=== PATIENT | male | born 1945 | race Caucasian/White ===

== ENCOUNTER → 2017-03-16 | Outpatient (CLI) | payer MEDICARE, BC ==
[~2017-03-16] MED LIST: SEPTRA PO
--- NOTE | ~2017-03-16 | CR106 ---
[facility] A Service of [facility] RADIOLOGY TEXT RESULTS PATIENT: CLAIRE ECHEVARRIA LOCATION: [facility] : 43 UNIT #: [id number] AGE: [address]: Willow Lacey MD SEX: M ORDER DR: [id number] [facility] [address] [place], [place] [address] [id number] O MR#: [id number] Acc #: [id number] NAME: CLAIRE ECHEVARRIA : 1945 SEX: M STUDY DATE/TIME: 03/16/2017 12:37 UNIT: [facility] ROOM: STUDY DESCRIPTION: CR Femur 2 Views Lt Attending Physician: Willow Lacey M.D., Ph.D. Referring Physician: Willow Lacey M.D., Ph.D. Ordering Physician: Willow Lacey M.D., Ph.D. Primary Care Physician: Suzi Vaughan M.D. MEDICAL IMAGING REPORT This report is preliminary unless electronic signature is present EXAM Left femur. 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 FINDINGS AP and lateral views of the left femur were obtained. There is a 17 mm lytic lesion visible in the lateral cortex of the proximal femoral shaft. There is a possible 5.5 cm lytic lesion in the lower intertrochanteric region in the center of the bone. This may have mild endosteal scalloping. No other lesions are identified, and there is no fracture. IMPRESSION 1. Definite small lytic lesion proximal left femur and 1 possible 5.5 cm lytic lesion in the intertrochanteric region. Correlation with CT or MRI imaging is recommended. Dictated by... Mark Mendoza M.D. THIS IS AN ELECTRONICALLY VERIFIED REPORT Mark Mendoza M.D. at 03/17/2017 7:10 AM JOSELO/dusty TD: 03/16/2017 18:10 JOB #: [id number] MEDICAL IMAGING REPORT Page 1 of 1 COPY
--- NOTE | ~2017-03-16 | CR150 ---
[facility] A Service of [facility] RADIOLOGY TEXT RESULTS PATIENT: CLAIRE ECHEVARRIA LOCATION: [facility] : 43 UNIT #: [id number] AGE: [address]: Willow Lacey MD SEX: M ORDER DR: [id number] [facility] [address] [place], [place] [address] [id number] O MR#: [id number] Acc #: [id number] NAME: CLAIRE ECHEVARRIA : 1945 SEX: M STUDY DATE/TIME: 03/16/2017 12:37 UNIT: [facility] ROOM: STUDY DESCRIPTION: CR Hip Min 2 Views Lt Attending Physician: Willow Lacey M.D., Ph.D. Referring Physician: Willow Lacey M.D., Ph.D. Ordering Physician: Willow Lacey M.D., Ph.D. Primary Care Physician: Suzi Vaughan M.D. MEDICAL IMAGING REPORT This report is preliminary unless electronic signature is present EXAM Left hip 03/16/2017 INDICATIONS Mantle cell lymphoma, left hip pain for 5 days. An AP view of the pelvis and a lateral view left hip were obtained. FINDINGS The patient appears to have lytic lesions that might be related to his lymphoma. There are 4 or 5 visible in the proximal right femur within he shaft measuring about 10-15 mm in size. There is 1 seen in the lateral cortex of the left femur measuring 17 mm in size. There is a questionable larger lucent area in the mid intertrochanteric shaft that is 5 cm x 4 cm. The bones of the pelvis are normal. IMPRESSION There are least 4 definite lytic lesions in the proximal right femoral shaft measuring up to 15 mm in diameter. There is 1 in the lateral cortex of the left proximal femoral shaft measuring at least 17 in diameter. There is a very subtle possible 4.9 cm lucent lesion in the lower intertrochanteric region of the femoral shaft. There may be some endosteal scalloping of this area. Correlation with MRI or a CT scan would be useful for evaluation. No fractures identified. Dictated by... Mark Mendoza M.D. THIS IS AN ELECTRONICALLY VERIFIED REPORT Mark Mendoza M.D. at 03/17/2017 7:10 AM JOSELO/farshad TD: 03/16/2017 17:56 [facility] A Service of [facility] RADIOLOGY TEXT RESULTS PATIENT: CLAIRE ECHEVARRIA LOCATION: [facility] #: [id number] : 43 UNIT #: [id number] AGE: [address]: Willow Lacey MD SEX: M ORDER DR: JOB #: [id number] MEDICAL IMAGING REPORT Page 1 of 1 COPY
== END | disposition home or self-care (01) ==
LOC: CRAD 11:47
DX: C83.14 Mantle cell lymphoma, lymph nodes of axilla and upper limb (principal); C90.00 Multiple myeloma not having achieved remission; D70.9 Neutropenia, unspecified; R93.8 Abnormal findings on diagnostic imaging of other specified body structures
CPT/HCPCS: 73502; 73552

== ENCOUNTER → 2017-04-03 | Outpatient (CLI) | payer MEDICARE, BC ==
--- NOTE | ~2017-04-03 | CR107 ---
[facility] A Service of [facility] RADIOLOGY TEXT RESULTS PATIENT: CLAIRE ECHEVARRIA LOCATION: [facility] #: [id number] : 41 UNIT #: [id number] AGE: [address]: Willow Lacey MD SEX: M ORDER DR: [id number] [facility] [address] [place], [place] [address] [id number] O MR#: [id number] Acc #: [id number] NAME: CLAIRE ECHEVARRIA : 1945 SEX: M STUDY DATE/TIME: 04/03/2017 15:54 UNIT: [facility] ROOM: STUDY DESCRIPTION: CR Femur 2 Views Rt Attending Physician: Willow Lacey M.D., Ph.D. Referring Physician: Willow Lacey M.D., Ph.D. Ordering Physician: Willow Lacey M.D., Ph.D. Primary Care Physician: Suzi Vaughan M.D. MEDICAL IMAGING REPORT This report is preliminary unless electronic signature is present EXAM Right femur 2 views HISTORY Mantel cell lymphoma. FINDINGS 2 views of the right femur obtained. Redemonstrated in the proximal femoral shaft are areas of endosteal scalloping and lucent lytic lesions. These are not identified in the distal shaft. The remaining bony elements are intact. There is osteoarthritis of the knee. Remaining bony elements are intact. There is osteoarthritis of the knee. CONCLUSION Multiple lytic foci in the proximal femoral shaft with endosteal scalloping consistent with bone involvement in this patient with history of lymphoma. Dictated by... Brandon Breaux M.D. THIS IS AN ELECTRONICALLY VERIFIED REPORT Brandon Breaux M.D. at 04/04/2017 7:28 AM MINESH/kika TD: 04/03/2017 23:05 JOB #: [id number] MEDICAL IMAGING REPORT [facility] A Service of [facility] RADIOLOGY TEXT RESULTS PATIENT: CLAIRE ECHEVARRIA LOCATION: [facility] #: [id number] : 41 UNIT #: [id number] AGE: [address]: Willow Lacey MD SEX: M ORDER DR: Page 1 of 1 COPY
--- NOTE | ~2017-04-03 | CR151 ---
[facility] A Service of [facility] RADIOLOGY TEXT RESULTS PATIENT: CLAIRE ECHEVARRIA LOCATION: [facility] : 43 UNIT #: [id number] AGE: [address]: Willow Lacey MD SEX: M ORDER DR: [id number] [facility] [address] [place], [place] [address] [id number] O MR#: [id number] Acc #: [id number] NAME: CLAIRE ECHEVARRIA : 1945 SEX: M STUDY DATE/TIME: 04/03/2017 15:53 UNIT: [facility] ROOM: STUDY DESCRIPTION: CR Hip Min 2 Views Rt Attending Physician: Willow Lacey M.D., Ph.D. Referring Physician: Willow Lacey M.D., Ph.D. Ordering Physician: Willow Lacey M.D., Ph.D. Primary Care Physician: Suzi Vaughan M.D. MEDICAL IMAGING REPORT This report is preliminary unless electronic signature is present EXAM AP pelvis and right hip HISTORY Mantle cell lymphoma. COMPARISON Examination is dated 03/16/2017. FINDINGS An AP view of the pelvis and oblique view of the right hip are submitted. There is generalized osteopenia. There are osteolytic lesions in the proximal right femur with endosteal scalloping. The appearance is certainly consistent with lymphomatous involvement. On the left side, this is present in the proximal femoral shaft laterally as well. Since the last study, there does not appear to be significant progression of disease. Femoral heads are intact. CONCLUSION Osteolytic lesions in the proximal femoral shafts bilaterally. The appearance certainly is consistent with bone involvement in this patient with known lymphoma. Dictated by... Brandon Breaux M.D. THIS IS AN ELECTRONICALLY VERIFIED REPORT Brandon Breaux M.D. at 04/04/2017 7:28 AM MINESH/mindy TD: 04/03/2017 23:03 [facility] A Service of [facility] RADIOLOGY TEXT RESULTS PATIENT: CLAIRE ECHEVARRIA LOCATION: [facility] #: [id number] : 41 UNIT #: [id number] AGE: [address]: Willow Lacey MD SEX: M ORDER DR: JOB #: [id number] MEDICAL IMAGING REPORT Page 1 of 1 COPY
== END | disposition home or self-care (01) ==
LOC: CRAD 15:26
DX: C83.14 Mantle cell lymphoma, lymph nodes of axilla and upper limb (principal); C90.00 Multiple myeloma not having achieved remission; D70.9 Neutropenia, unspecified; M89.552 Osteolysis, left thigh; M89.551 Osteolysis, right thigh
CPT/HCPCS: 73502; 73552

== ENCOUNTER → 2017-08-11 | Outpatient (CLI) | payer MEDICARE, BC ==
--- NOTE | ~2017-08-11 | MR31 ---
[facility] A Service of [facility] RADIOLOGY TEXT RESULTS PATIENT: CLAIRE ECHEVARRIA LOCATION: [facility] : 43 UNIT #: [id number] AGE: [address]: Willow Lacey MD SEX: M ORDER DR: [id number] [facility] [address] [place], [place] [address] [id number] O MR#: [id number] Acc #: [id number] NAME: CLAIRE ECHEVARRIA : 1945 SEX: M STUDY DATE/TIME: 08/11/2017 19:08 UNIT: [facility] ROOM: STUDY DESCRIPTION: MR Cervical WWo Contrast Attending Physician: Willow Lacey M.D., Ph.D. Referring Physician: Willow Lacey M.D., Ph.D. Ordering Physician: Willow Lacey M.D., Ph.D. Primary Care Physician: Suzi Vaughan M.D. MRI CENTER REPORT This report is preliminary unless electronic signature is present. EXAM Cervical spine MRI with and without HISTORY Mantle cell lymphoma and multiple myeloma. Neck pain since March 2017, numbness and tingling in both arms and hands, greater on the right. Pain into both shoulders, greater on the left. Multiple myeloma and mantle cell lymphoma for 4 years. Chemotherapy last day 08/02/2017. Radiation therapy previously as well. FINDINGS MRI of the cervical spine performed prior to and following intravenous administration of 12 mL MultiHance. There is a CT for comparison from 04/16/2017. There is some subtle degenerative anterolisthesis of C4 on C5 by about 2 mm secondary to facet arthritis. There is extensive cellular marrow replacement with some bone destruction consistent with known diagnosis of multiple myeloma/mantle cell lymphoma. Most focal areas of involvement include posterior elements at C2 where there is apparent cortical disruption and some extension into adjacent soft tissues as well as involvement of the majority of the T2 vertebral body and posterior elements with mild anterior wedging of T2 which is probably pathologic. Marrow is abnormal essentially in all of the visualized cervical and upper thoracic vertebral bodies and posterior elements. Findings are consistent with multiple lytic lesions on the earlier CT scan. The mild compression deformity at T2 is present on that study also. The cervical cord is normal in size and signal intensity and there is no Chiari-I malformation. There is degenerative disease as follows: At C2-3, mild bilateral facet degenerative change and a broad posterior disc bulge but no canal stenosis. There is mild foraminal narrowing on the left. [facility] A Service of [facility] RADIOLOGY TEXT RESULTS PATIENT: CLAIRE ECHEVARRIA LOCATION: [facility] : 43 UNIT #: [id number] AGE: [address]: Willow Lacey MD SEX: M ORDER DR: At C3-4, fairly severe left and more moderate right-sided facet arthritis with a mild broad-based posterior disc bulge. There is moderate left, milder right facet degenerative change. There is no canal stenosis. Partly seen is the soft tissue extension of the metastatic disease to the posterior elements of C2 extending into C3, more prominent to the right than the left. At C4-5, there is severe facet arthritis bilaterally worse to the left which accounts for the anterolisthesis of 4 on 5. There is at least ligamentum flavum thickening with probably some atypical synovial cyst formation intracanalicular location impinging upon left posterolateral thecal sac and entry zone left 4-5 foramen. This is probably partly calcified and seen on the CT scan. Less likely consideration would be partially calcified meningioma. Given the amount of facet arthritis, hypertrophic changes related to the arthritis strongly favored. There is mild canal stenosis and mass effect on the cord such that it is displaced towards the right side. There is also concentric disc bulging and a broad posterior protrusion/extrusion which contributes to this. There is severe left greater than right-sided foraminal impingement. At C5-6, there is bilateral facet degenerative change which is moderate on the right, [id number] on the left with concentric desiccated disc osteophyte complexes and some uncovertebral osteophyte formation. There is flattening of the anterior cord but the cord is otherwise surrounded by CSF posteriorly. There is moderate to severe right and severe left-sided foraminal narrowing. At C6-7, concentric desiccated disc osteophyte complex and uncovertebral osteophyte formation bilaterally with at least moderate facet degenerative change. There is mild effacement of the anterior cord and thecal sac with very mild canal stenosis. There is [id number] right and fairly severe left side foraminal impingement. At C7-T1, there is moderate left and milder right side facet degenerative change. There is no canal stenosis. There is mild left side foraminal narrowing. There is marginal enhancement associated with the pathology at C4-5 which is probably atypical synovial cyst versus less likely densely calcified meningioma. No pathologic cord enhancement is seen. The multiple bone lesions due to known myeloma/mantle cell lymphoma show some mild enhancement. The bone lesions do not however result in significant cervical or visualized thoracic canal stenosis. Probable small cyst in the right lobe of the thyroid gland. IMPRESSION 1. There are extensive bony lesions consistent with known diagnosis of multiple myeloma/mantle cell lymphoma. On the CT scan from March, multiple lytic lesions are seen. On the MRI, there are corresponding areas of cellular marrow replacement and areas of bone destruction. [facility] A Service of [facility] RADIOLOGY TEXT RESULTS PATIENT: CLAIRE ECHEVARRIA LOCATION: [facility] : 41 UNIT #: [id number] AGE: [address]: Willow Lacey MD SEX: M ORDER DR: Most willie destruction is appreciated in the posterior elements of C2 into C3 with some extension into the adjacent posterior paraspinous soft tissues. There is canal stenosis which is detailed above related to degenerative disease but there does not appear to be canal stenosis related to the underlying myeloma/lymphoma. 2. Mild canal stenosis is present in particular at the C4-5 level where there is degenerative anterolisthesis of C4 on C5 due to severe facet arthritis, degenerative disc disease and what is probably hypertrophic change involving the left-sided ligamentum flavum with atypical synovial cyst formation. See full description above. 3. There is multilevel foraminal impingement which is severe at several levels. 4. Cervical cord is normal in size and signal intensity and there is no pathologic cord enhancement. STAT * RESULT Dictated by... Sandy A. Crecelius, M.D. THIS IS AN ELECTRONICALLY VERIFIED REPORT Sandy Bliss M.D. at 08/15/2017 7:32 AM Osbaldo TD: 08/14/2017 10:28 JOB #: [id number] MRI CENTER REPORT Page 1 of 1 COPY
[2017-08-11 19:05] LABS: POC - CREATININE 1.77 mg/dL (0.64-1.27)
== END | disposition home or self-care (01) ==
LOC: CMRI 18:31
PROVIDERS: Internal Medicine Hematology & Oncology
DX: C83.14 Mantle cell lymphoma, lymph nodes of axilla and upper limb (principal); D70.9 Neutropenia, unspecified; C90.00 Multiple myeloma not having achieved remission; C79.51 Secondary malignant neoplasm of bone; M48.02 Spinal stenosis, cervical region; M43.12 Spondylolisthesis, cervical region; M46.92 Unspecified inflammatory spondylopathy, cervical region; M50.321 Other cervical disc degeneration at C4-C5 level; M71.38 Other bursal cyst, other site; M43.8X4 Other specified deforming dorsopathies, thoracic region; M47.892 Other spondylosis, cervical region; M99.81 Other biomechanical lesions of cervical region; M50.221 Other cervical disc displacement at C4-C5 level; M25.78 Osteophyte, vertebrae; M50.821 Other cervical disc disorders at C4-C5 level
CPT/HCPCS: 72156; 82565; A9577